=== PATIENT | female | born 1990 | race Caucasian/White ===

== ENCOUNTER 2019-01-13 05:50 | Observation (INO) | payer OTHER ==
[~2019-01-13] VITALS: Ht 160 cm; Wt 78.5 kg
[~2019-01-13 05:50] MED LIST: BCP
[2019-01-13 06:10] VITALS: BP 118/68
== END 2019-01-13 09:25 | disposition home or self-care (01) ==
LOC: 4S 05:50
PROVIDERS: ADMIT Obstetrics & Gynecology; ATTEND Obstetrics & Gynecology
DX: O62.9 Abnormality of forces of labor, unspecified (principal); Z3A.39 39 weeks gestation of pregnancy
CPT/HCPCS: 76805; 80307 ×8; 81002; G0378